=== PATIENT | male | born 1965 | race Two or more races ===

== ENCOUNTER → 2023-12-09 07:57 | Outpatient (REF) | payer BC, SELFPAY | LOC: HWRCS 07:57 | PROVIDERS: ATTENDING PHYSICIAN Nurse Practitioner | DX: R63.4 Abnormal weight loss (principal); R94.31 Abnormal electrocardiogram [ECG] [EKG] | CPT/HCPCS: 93306 ==

== ENCOUNTER → 2023-12-10 09:36 | Outpatient (REF) | payer BC, SELFPAY | LOC: RCS 09:36 | PROVIDERS: ATTENDING PHYSICIAN Nurse Practitioner | DX: R63.4 Abnormal weight loss (principal); R94.31 Abnormal electrocardiogram [ECG] [EKG] | CPT/HCPCS: 93017 ==